=== PATIENT | female | born 1980 | race Hispanic/Latino ===

== ENCOUNTER 2024-03-17 15:25 | Emergency (ER) | payer OTHER ==
[~2024-03-17] VITALS: Ht 165.1 cm; Wt 51.3 kg
[2024-03-17] MEDS ORDERED: IOPAMIDOL 370 MG/ML 100 ML INFUS..BTL INJ ONE (17:18)
[2024-03-17] MEDS: DICYCLOMINE HCL 20 MG/2 ML VIAL IM ONE (17:51)
[2024-03-17] MEDS ORDERED: DIATRIZOATE MEGL/DIATRIZOA SOD 30 ML BTL PO ONE (18:48)
[2024-03-17] MEDS ORDERED: PEPCID20 MG PO (21:17)
[2024-03-17] MEDS ORDERED: DICYCLOMINE HCL10 MG PO (21:18)
[2024-03-17 21:30] VITALS: BP 98/55; PULSE 60; RESP 18; TEMP 98
[2024-03-17 21:33] VITALS: PULSE 64; RESP 16; TEMP 98.8; O2SAT 99
== END 2024-03-17 21:30 | disposition home or self-care (01) ==
LOC: FSED 15:31
DX: R10.33 Periumbilical pain (principal); K44.9 Diaphragmatic hernia without obstruction or gangrene; K57.90 Diverticulosis of intestine, part unspecified, without perforation or abscess without bleeding; M54.50 Low back pain, unspecified; R11.0 Nausea; E03.9 Hypothyroidism, unspecified; F41.9 Anxiety disorder, unspecified; F32.A Depression, unspecified; Z98.84 Bariatric surgery status
CPT/HCPCS: 74176; 74177; 80053; 80307; 81003; 85025; 99283; J0500; Q9963; Q9967